=== PATIENT | female | born 1945 | race Caucasian/White ===

== ENCOUNTER 2018-05-11 13:26 | Emergency (ER) | payer MEDICARE ==
[2018-05-11 13:48] LABS: URINE APPEARANCE SL CLOUDY; URINE BILIRUBIN NEGATIVE (NEGATIVE); URINE BLOOD NEGATIVE (NEGATIVE); URINE COLOR YELLOW; URINE GLUCOSE (UA) NEGATIVE (NEGATIVE); URINE KETONE NEGATIVE (NEGATIVE); URINE LEUKOCYTE ESTERASE NEGATIVE (NEGATIVE); URINE NITRITE NEGATIVE (NEGATIVE); URINE PROTEIN NEGATIVE (NEGATIVE); URINE UROBILINOGEN 0.2 E.U./dL (0.20 - 1.00)
--- NOTE | 2018-05-11 14:14 | Emergency Department Record ---
History of Present Illness - General Chief complaint: Female Urogenital Problem Stated complaint: BLADDER INFECTION Time Seen by Provider: 05/11/18 13:56 Source: Patient, RN notes reviewed Mode of Arrival: Ambulatory - History of Present Illness Initial comments: pain states body aches and right upper quad pain and nausea and dry heaves and she thought dysuria but her urine was negative for a UTI. PSH of GB removal , two artificial knees, shoulder shoulder and carpal tunnel surgery and right hand surgery. Primary Dr is Dr. Chaves Onset/Timin -: Days(s) Severity scale (1-10): 8 Quality: Other Consistency: Constant Improves with: None Worsens with: None Associated Symptoms: Dysuria, Fever/chills, Headaches - Related Data Previous Rx's Medication Instructions Recorded Amoxicillin/Potassium Clav 1 each PO BID #20 tablet 05/11/18 [Augmentin 875-125 Tablet] Allergies Allergy/AdvReac Type Severity Reaction Status Date / Time cyclobenzaprine HCl Allergy PT UNSURE Verified 05/11/18 13:45 [From Flexeril] OF REACTION anthralin micronized AdvReac NAUSEA AND Verified 05/11/18 13:45 [From Zithranol] VOMITING azithromycin [From Zithromax] AdvReac NAUSEA AND Verified 05/11/18 13:45 VOMITING meperidine HCl [From Demerol] AdvReac NAUSEA AND Verified 05/11/18 13:45 VOMITING morphine AdvReac ALTERED Verified 05/11/18 13:45 MENTAL STATUS nitrofurantoin AdvReac NAUSEA AND Verified 05/11/18 13:45 [From Macrobid] VOMITING nitrofurantoin AdvReac NAUSEA AND Verified 05/11/18 13:45 macrocrystalline VOMITING [From Macrobid] phenazopyridine HCl AdvReac NAUSEA AND Verified 05/11/18 13:45 [From Pyridium] VOMITING tramadol AdvReac ALTERED Verified 05/11/18 13:45 MENTAL STATUS Travel Screening - Travel/Exposure Within Last 30 Days Have you traveled within the last 30 days?: No - Travel/Exposure Within Last Year Have you traveled outside the [place] in the last year?: No - Additonal Travel Details Have you been exposed to anyone with a communicable illness?: No - Travel Symptoms Symptom Screening: None Review of Systems Reviewed: No additional complaints except as noted below Constitutional: Reports: As per HPI. Denies: Chills, Fever, Malaise, Night sweats, Weakness, Weight change Eyes: Reports: As per HPI. Denies: Eye discharge, Eye pain, Photophobia, Vision change ENT: Reports: As per HPI. Denies: Congestion, Dental pain, Ear pain, Epistaxis , Hearing loss, Throat pain Respiratory: Reports: As per HPI. Denies: Cough, Dyspnea, Hemoptysis, Stridor, Wheezes Cardiovascular: Reports: As per HPI. Denies: Arrhythmia, Chest pain, Dyspnea on exertion, Edema, Murmurs, Orthopnea, Palpitations, Paroxysmal nocturnal dyspnea, Rheumatic Fever, Syncope Endocrine: Reports: As per HPI. Denies: Fatigue, Heat or cold intolerance, Polydipsia, Polyuria Gastrointestinal: Reports: As per HPI, Abdominal pain. Denies: Constipation, Diarrhea, Hematemesis, Hematochezia, Melena, Nausea, Vomiting Genitourinary: Reports: As per HPI. Denies: Abnormal menses, Discharge, Dyspareunia, Dysuria, Frequency, Hematuria, Incontinence, Retention, Urgency Musculoskeletal: Reports: As per HPI. Denies: Arthralgia, Back pain, Gout, Joint swelling, Myalgia, Neck pain Skin: Reports: As per HPI. Denies: Bruising, Change in color, Change in hair/ nails, Lesions, Pruritus, Rash Neurological: Reports: As per HPI. Denies: Abnormal gait, Confusion, Headache, Numbness, Paresthesias, Seizure, Tingling, Tremors, Vertigo, Weakness Psychiatric: Reports: As per HPI. Denies: Anxiety, Auditory hallucinations, Depression, Homicidal thoughts, Suicidal thoughts, Visual hallucinations Hematological/Lymphatic: Reports: As per HPI. Denies: Anemia, Blood Clots, Easy bleeding, Easy bruising, Swollen glands Past Medical History - SOCIAL HISTORY Smoking Status: Never smoker Alcohol Use: None Drug Use: None - RESPIRATORY Hx Respiratory Disorders: No Hx Asthma: Yes (uses inhaler every day some days better than others. no hospitalizations fo) Hx Bronchitis: Yes Hx Dyspnea: Yes Hx Pneumonia: Yes - CARDIOVASCULAR Hx Cardio Disorders: Yes Hx Palpitations: Yes (occass.) - NEURO Hx Neuro Disorders: No Hx Neuropathy: Yes (toes and fingers) - GI Hx GI Disorders: No Hx Irritable Bowel: Yes - Hx Genitourinary Disorders: No Hx UTI: Yes (occassional UTI's) - ENDOCRINE Hx Endocrine Disorders: Yes Hx Diabetes: Yes Comment:: hgA1C q 3month; down to 7; plan recheck 11/30/15 - MUSCULOSKELETAL Hx Musculoskeletal Disorders: Yes Hx Arthritis: Yes - PSYCH Hx Psych Problems: No Hx Anxiety: Yes (with loss of grandson) - HEMATOLOGY/ONCOLOGY Hx Hematology/Oncology Disorders: No Hx Blood Transfusions: Yes (a long time ago) Family Medical History Any Significant Family History?: Yes Hx Cancer: Father, Brother/Sister Hx Diabetes: Mother Hx Heart Disease: Mother Hx HTN: Mother Hx Resp Disorders: Mother Physical Exam - General General Appearance: Alert, Oriented x3, Cooperative, No acute distress - Head Head exam: Normal inspection - Eye Eye exam: Normal appearance, PERRL Pupils: Normal accommodation - ENT ENT exam: Normal exam, Mucous membranes moist, Normal external ear exam, Normal orophraynx, TM's normal bilaterally Ear exam: Normal external inspection. negative: External canal tenderness Nasal Exam: Normal inspection. negative: Discharge, Sinus tenderness Mouth exam: Normal external inspection, Tongue normal Teeth exam: Normal inspection. negative: Dental caries Throat exam: Normal inspection. negative: Tonsillar erythema, Tonsillar exudate - Neck Neck exam: Normal inspection, Full ROM. negative: Tenderness - Respiratory Respiratory exam: Normal lung sounds bilaterally. negative: Respiratory distress - Cardiovascular Cardiovascular Exam: Regular rate, Normal rhythm, Normal heart sounds - GI/Abdominal GI/Abdominal exam: Soft, Normal bowel sounds. negative: Tenderness - Rectal Rectal exam: Deferred - exam: Deferred - Extremities Extremities exam: Normal inspection, Full ROM, Normal capillary refill. negative: Tenderness - Back Back exam: Reports: Normal inspection, Full ROM. Denies: Muscle spasm, Rash noted, Tenderness - Neurological Neurological exam: Alert, Normal gait, Oriented X3, Reflexes normal - Psychiatric Psychiatric exam: Normal affect, Normal mood - Skin Skin exam: Dry, Intact, Normal color, Warm Course Vital Signs 05/11/18 13:46 Temperature 99.6 F Pulse Rate 112 H Respiratory 16 Rate Blood Pressure 161/96 Pulse Ox 98 Medical Decision Making - Data Complexity MDM Data: Labs Ordered and/or Reviewed, X-Ray Ordered and/or Reviewed (CT no obstructive uropathy and sigmoid diverticulosis no itis) - Lab Data Result diagrams: 05/11/18 14:55 05/11/18 14:55 Lab Results 05/11/18 Range/Units 13:39 Urine Color Yellow Urine Appearance Sl cloudy Urine pH 6.5 (5.0-8.0) Ur Specific [place] <= 1.005 (1.002-1.030) Urine Protein Negative (NEGATIVE) Urine Glucose (UA) Negative (NEGATIVE) Urine Ketones Negative (NEGATIVE) Urine Blood Negative (NEGATIVE) Urine Nitrite Negative (NEGATIVE) Urine Bilirubin Negative (NEGATIVE) Urine Urobilinogen 0.2 (0.20 - 1.00) E.U./dL Ur Leukocyte Esterase Negative (NEGATIVE) Disposition Clinical Impression: Diverticulitis Abdominal pain Qualifiers: Abdominal location: right upper quadrant Qualified Code(s): R10.11 - Right upper quadrant pain Disposition: Home, Self-Care Condition: (1) Good Instructions: Abdominal Pain (ED), Diverticulitis (ED) Additional Instructions: follow up with Dr Chaves or Grace next week Prescriptions: Amoxicillin/Potassium Clav [Augmentin 875-125 Tablet] 1 each PO BID #20 tablet Forms: Patient Portal Access Time of Disposition: 15:50 Quality - Quality Measures Quality Measures: N/A - Blood Pressure Screening Does Patient Have Any of the Following: No, Active Dx of HTN Blood Pressure Classification: Hypertensive Reading Systolic Measurement: 161 Diastolic Measurement: 96 Screening for High Blood Pressure: Patient Exclusion, Hx of HTN [G9744]
[2018-05-11] MEDS ORDERED: 0.9 % SODIUM CHLORIDE 1000ML 1,000 ML IV PRN (14:42)
[2018-05-11] MEDS ORDERED: ONDANSETRON HCL IV 4 MG/2 ML VIAL IV ONE (14:42)
[2018-05-11 15:11] LABS: EOS % 0.1 % (0-6); HEMOGLOBIN 13.2 gm/dl (11.6-16.0); MEAN CELL VOLUME 91.3 fl (81-97); MEAN CORPUSCULAR HEMOGLOBIN 30.1 pg (27-33); MEAN PLATELET VOLUME 10.1 fl (7.4-10.4); MONO % 4.7 % (0-9); PLATELET COUNT 194 K/uL (130-400); RED BLOOD COUNT 4.38 M/uL (3.80-5.40); RED CELL DISTRIBUTION WIDTH 12.9 % (11.5-14.5); WHITE BLOOD COUNT W/O DIFF 11.7 K/uL (4.2-12.2)
[2018-05-11 15:22] LABS: INFLUENZA A NEGATIVE (NEGATIVE); INFLUENZA B NEGATIVE (NEGATIVE); STREP A SCREEN NEGATIVE (NEGATIVE)
[2018-05-11 15:23] LABS: BLOOD UREA NITROGEN 12 mg/dL (8-23); CREATININE 0.7 mg/dL (0.5-0.9); EST GLOMERULAR FILTRATION RATE > 60 mL/min
[2018-05-11 15:24] LABS: TOTAL PROTEIN 7.5 g/dL (6.6-8.7)
[2018-05-11 15:26] LABS: GLUCOSE,RANDOM 250 mg/dL (74-109)
[2018-05-11 15:28] LABS: ALT/SGPT 42 U/L (<33); BILIRUBIN,DIRECT 0.2 mg/dL (0-0.3)
[2018-05-11 15:29] LABS: ALBUMIN 4.4 g/dL (4.0-5.0); ALKALINE PHOSPHATASE 84 U/L (35-104); AST/SGOT 42 U/L (10.0-35.0); LIPASE 26 U/L (13-60)
--- NOTE | 2018-05-12 14:13 | CT SCAN REPORT ---
EXAM: CT OF THE ABDOMEN AND PELVIS WITHOUT CONTRAST HISTORY: URINARY TRACT INFECTION. TECHNIQUE: Sequential axial images were obtained from the diaphragms through the ischiorectal fossa without intravenous or oral contrast administration. FINDINGS: There are no CT findings suggestive of of obstructive uropathy. There is no evidence of hydronephrosis or nephrolithiasis. The nonopacified liver appears normal. The gallbladder has been surgically removed. The pancreas and spleen appear normal. The adrenal glands appear normal. The small bowel appears normal. There is colonic diverticulosis without evidence of diverticulitis. The urinary bladder appears normal. The osseous structures are normal. There is multilevel degenerative change of the lumbar spine. IMPRESSION: 1. NO CT FINDINGS SUGGESTIVE OF OBSTRUCTIVE UROPATHY. NO RENAL CALCULI ARE APPRECIATED. 2. THERE IS SIGMOID COLON DIVERTICULOSIS WITHOUT EVIDENCE OF DIVERTICULITIS. JOB NUMBER: [id number] MTDD
== END 2018-05-11 16:04 | disposition home or self-care (01) ==
LOC: ER 13:26
DX: K57.92 Diverticulitis of intestine, part unspecified, without perforation or abscess without bleeding (principal); R30.0 Dysuria; R51 Headache; R11.0 Nausea; E11.9 Type 2 diabetes mellitus without complications; I10 Essential (primary) hypertension
CPT/HCPCS: 74176; 80048; 80076; 81003; 83690; 85027; 87400; 87880; 96374; 99284; J2405

== ENCOUNTER 2018-12-26 15:20 | Emergency (ER) | payer MEDICARE, MEDICAID ==
--- NOTE | 2018-12-26 15:28 | Emergency Department Record ---
History of Present Illness - General Chief Complaint: Difficulty Breathing Stated Complaint: AMINAH Time Seen by Provider: 12/26/18 15:24 Source: Patient, RN notes reviewed - History of Present Illness Initial Comments: talking slowly and this has been happening for 2-3 months and she was very busy this weekend and when she is tired she talks slower. Slight headache and ususally she uses tylenol. Moving all four extremities to commands and she is seeing neurology for her slow talking. Dr Dixon's appointment is tomorrow (neurology). Sob and no chest pain and initially she felt SOB and she said her body was vibrating which scares her. She had a MRI of the brain on 12/21/2018 which was negative. Patient drove here. - Related Data Previous Rx's Medication Instructions Recorded Amoxicillin/Potassium Clav 1 each PO BID #20 tablet 05/11/18 [Augmentin 875-125 Tablet] Allergies Allergy/AdvReac Type Severity Reaction Status Date / Time cyclobenzaprine HCl Allergy PT UNSURE Verified 05/11/18 13:45 [From Flexeril] OF REACTION anthralin micronized AdvReac NAUSEA AND Verified 05/11/18 13:45 [From Zithranol] VOMITING azithromycin [From Zithromax] AdvReac NAUSEA AND Verified 05/11/18 13:45 VOMITING meperidine HCl [From Demerol] AdvReac NAUSEA AND Verified 05/11/18 13:45 VOMITING morphine AdvReac ALTERED Verified 05/11/18 13:45 MENTAL STATUS nitrofurantoin AdvReac NAUSEA AND Verified 05/11/18 13:45 [From Macrobid] VOMITING nitrofurantoin AdvReac NAUSEA AND Verified 05/11/18 13:45 macrocrystalline VOMITING [From Macrobid] phenazopyridine HCl AdvReac NAUSEA AND Verified 05/11/18 13:45 [From Pyridium] VOMITING tramadol AdvReac ALTERED Verified 05/11/18 13:45 MENTAL STATUS Review of Systems Reviewed: No additional complaints except as noted below Constitutional: Reports: As per HPI. Denies: Chills, Fever, Malaise, Night sweats, Weakness, Weight change Eyes: Reports: As per HPI. Denies: Eye discharge, Eye pain, Photophobia, Vision change ENT: Reports: As per HPI. Denies: Congestion, Dental pain, Ear pain, Epistaxis, Hearing loss, Throat pain Respiratory: Reports: As per HPI. Denies: Cough, Dyspnea, Hemoptysis, Stridor, Wheezes Cardiovascular: Reports: As per HPI. Denies: Arrhythmia, Chest pain, Dyspnea on exertion, Edema, Murmurs, Orthopnea, Palpitations, Paroxysmal nocturnal dyspnea, Rheumatic Fever, Syncope Endocrine: Reports: As per HPI. Denies: Fatigue, Heat or cold intolerance, Polydipsia, Polyuria Gastrointestinal: Reports: As per HPI. Denies: Abdominal pain, Constipation, D iarrhea, Hematemesis, Hematochezia, Melena, Nausea, Vomiting Genitourinary: Reports: As per HPI. Denies: Abnormal menses, Discharge, Dyspareunia, Dysuria, Frequency, Hematuria, Incontinence, Retention, Urgency Musculoskeletal: Reports: As per HPI. Denies: Arthralgia, Back pain, Gout, Joint swelling, Myalgia, Neck pain Skin: Reports: As per HPI. Denies: Bruising, Change in color, Change in hair/nails, Lesions, Pruritus, Rash Neurological: Reports: As per HPI, Other (slow speech). Denies: Abnormal gait, Confusion, Headache, Numbness, Paresthesias, Seizure, Tingling, Tremors, Vertigo, Weakness Psychiatric: Reports: As per HPI. Denies: Anxiety, Auditory hallucinations, Depression, Homicidal thoughts, Suicidal thoughts, Visual hallucinations Hematological/Lymphatic: Reports: As per HPI. Denies: Anemia, Blood Clots, Easy bleeding, Easy bruising, Swollen glands Past Medical History - SOCIAL HISTORY Smoking Status: Never smoker Drug Use: None - RESPIRATORY Hx Respiratory Disorders: No Hx Asthma: Yes (uses inhaler every day some days better than others. no hospitalizations fo) Hx Bronchitis: Yes Hx Dyspnea: Yes Hx Pneumonia: Yes - CARDIOVASCULAR Hx Cardio Disorders: Yes Hx Palpitations: Yes (occass.) - NEURO Hx Neuro Disorders: No Hx Neuropathy: Yes (toes and fingers) - GI Hx GI Disorders: No Hx Irritable Bowel: Yes - Hx Genitourinary Disorders: No Hx UTI: Yes (occassional UTI's) - ENDOCRINE Hx Endocrine Disorders: Yes Hx Diabetes: Yes Comment:: hgA1C q 3month; down to 7; plan recheck 11/30/15 - MUSCULOSKELETAL Hx Musculoskeletal Disorders: Yes Hx Arthritis: Yes - PSYCH Hx Psych Problems: No Hx Anxiety: Yes (with loss of grandson) - HEMATOLOGY/ONCOLOGY Hx Hematology/Oncology Disorders: No Hx Blood Transfusions: Yes (a long time ago) Family Medical History Hx Cancer: Father, Brother/Sister Hx Diabetes: Mother Hx Heart Disease: Mother Hx HTN: Mother Hx Resp Disorders: Mother Physical Exam - General General Appearance: Alert, Oriented x3, Cooperative, No acute distress - Head Head exam: Normal inspection - Eye Eye exam: Normal appearance, PERRL Pupils: Normal accommodation - ENT ENT exam: Normal exam, Mucous membranes moist, Normal external ear exam, Normal orophraynx, TM's normal bilaterally Ear exam: Normal external inspection. negative: External canal tenderness Nasal Exam: Normal inspection. negative: Discharge, Sinus tenderness Mouth exam: Normal external inspection, Tongue normal Teeth exam: Normal inspection. negative: Dental caries Throat exam: Normal inspection. negative: Tonsillar erythema, Tonsillar exudate - Neck Neck exam: Normal inspection, Full ROM. negative: Tenderness - Respiratory Respiratory exam: Normal lung sounds bilaterally. negative: Respiratory distress - Cardiovascular Cardiovascular Exam: Regular rate, Normal rhythm, Normal heart sounds - GI/Abdominal GI/Abdominal exam: Soft, Normal bowel sounds. negative: Tenderness - Rectal Rectal exam: Deferred - exam: Deferred - Extremities Extremities exam: Normal inspection, Full ROM, Normal capillary refill. negative: Tenderness - Back Back exam: Reports: Normal inspection, Full ROM. Denies: Muscle spasm, Rash noted, Tenderness - Neurological Neurological exam: Alert, Normal gait, Oriented X3, Reflexes normal - Psychiatric Psychiatric exam: Normal affect, Normal mood - Skin Skin exam: Dry, Intact, Normal color, Warm Course - Reevaluation(s) Reevaluation #1: patient is feeling better and talking better and she feels she is back to her baseline and is ambulating around the room. 12/26/18 16:51 Medical Decision Making - Lab Data Result diagrams: 12/26/18 15:30 12/26/18 15:30 Disposition Clinical Impression: Slow rate of speech Disposition: Home, Self-Care Condition: (1) Good Instructions: Panic Attack (ED), Anxiety (ED), Weakness (ED) Additional Instructions: follow up with Dr Chaves in one week keep appointment with neurology tylenol for pain Forms: Patient Portal Access Time of Disposition: 17:03 Quality - Quality Measures Quality Measures: N/A - Blood Pressure Screening Does Patient Have Any of the Following: No, Active Dx of HTN Blood Pressure Classification: Hypertensive Reading Systolic Measurement: 145 Diastolic Measurement: 90 Screening for High Blood Pressure: Patient Exclusion, Hx of HTN [G9744]
[2018-12-26 15:37] LABS: ABSOLUTE NEUTROPHIL COUNT 4.56; BASO % 0.1 % (0-6); GRAN % 59.9 % (47-80); HEMOGLOBIN 13.6 gm/dl (11.6-16.0); LYMPH % 30.7 % (16-45); MEAN CORPUSCULAR HEMOGLOBIN 30.8 pg (27-33); MEAN CORPUSCULAR HGB CONC 33.2 g/dl (32-36); MEAN PLATELET VOLUME 10.4 fl (7.4-10.4); MONO % 7.3 % (0-9); PLATELET COUNT 257 K/uL (130-400); RED BLOOD COUNT 4.41 M/uL (3.80-5.40); RED CELL DISTRIBUTION WIDTH 13.2 % (11.5-14.5); WHITE BLOOD COUNT W/O DIFF 7.6 K/uL (4.2-12.2)
[2018-12-26 15:49] LABS: BLOOD UREA NITROGEN 21 mg/dL (8-23); CREATININE 0.8 mg/dL (0.5-0.9); EST GLOMERULAR FILTRATION RATE > 60 mL/min
[2018-12-26 15:50] LABS: TOTAL PROTEIN 7.5 g/dL (6.6-8.7)
[2018-12-26 15:52] LABS: GLUCOSE,RANDOM 216 mg/dL (74-109)
[2018-12-26 15:55] LABS: ACETAMINOPHEN < 5.0 ug/mL (10.0-30.0); ALB/GLOB RATIO 1.7 (1.1-1.8); ALBUMIN 4.7 g/dL (4.0-5.0); ALKALINE PHOSPHATASE 69 U/L (35-104); ALT/SGPT 23 U/L (<33); AST/SGOT 24 U/L (10.0-35.0)
[2018-12-26 15:57] LABS: URINE APPEARANCE CLEAR; URINE BILIRUBIN NEGATIVE (NEGATIVE); URINE BLOOD NEGATIVE (NEGATIVE); URINE COLOR YELLOW; URINE GLUCOSE (UA) NEGATIVE (NEGATIVE); URINE KETONE TRACE (NEGATIVE); URINE LEUKOCYTE ESTERASE TRACE (NEGATIVE); URINE NITRITE NEGATIVE (NEGATIVE); URINE PROTEIN NEGATIVE (NEGATIVE); URINE UROBILINOGEN 0.2 E.U./dL (0.20 - 1.00)
[2018-12-26 16:18] LABS: URINE EPITHELIAL CELLS 16 - 20 (FEW)
[2018-12-26 16:19] LABS: URINE MUCUS HEAVY
[2018-12-26] MEDS ORDERED: ACETAMINOPHEN 325 MG TAB PO ONE (16:52)
--- NOTE | 2018-12-27 17:48 | CT SCAN REPORT ---
EXAM: CT SCAN HEAD WO CONTRAST HISTORY: HEADACHE. PATIENT STATES FRONTAL HEADACHE TODAY. NO KNOWN INJURY. DIFFICULTY BREATHING. TECHNIQUE: Noncontrast CT of the brain. COMPARISON: September 12, 2018. FINDINGS: There is no sign of acute hemorrhage, infarction, mass edema, or contrusion. Gaines and white matter attenuations appear normal. CSF spaces are symmetrical and of normal size without effacement or midline shift. The skull base and cranium show no evidence of any fracture or suspicious lesion. Paranasal sinuses appear normal. IMPRESSION: NO SIGN OF ACUTE BRAIN PATHOLOGY. JOB NUMBER: [id number] MTDD
== END 2018-12-26 17:13 | disposition home or self-care (01) ==
LOC: ER 15:20
DX: R47.89 Other speech disturbances (principal); R06.02 Shortness of breath; R42 Dizziness and giddiness; R51 Headache; E11.9 Type 2 diabetes mellitus without complications; I10 Essential (primary) hypertension; Z79.84 Long term (current) use of oral hypoglycemic drugs
CPT/HCPCS: 99284 ×2; 82140; 85025; 85730; 80048; 80053; 81001; 71046; 70450; 93005; 93010; G0480 ×2; 80320; 80329